=== PATIENT | male | born 1980 | race Two or more races ===

== ENCOUNTER 2018-09-28 10:43 | Outpatient (CLI) | payer OTHER | END 2018-09-28 10:45 | disposition home or self-care (01) | LOC: RAD 10:43 | DX: M54.5 Low back pain (principal) ==

== ENCOUNTER 2021-10-21 15:04 | Outpatient (CLI) | payer OTHER ==
[~2021-10-21 15:04] MED LIST: DICLOFENAC POTA50 MG PO; NORFLEX100MG PO; VOLTAREN-XR100 MG PO
== END 2021-10-21 15:12 | disposition home or self-care (01) ==
LOC: LAB 15:04
DX: Z20.818 Contact with and (suspected) exposure to other bacterial communicable diseases (principal); Z20.828 Contact with and (suspected) exposure to other viral communicable diseases

== ENCOUNTER 2022-01-28 12:52 | Emergency (ER) | payer OTHER ==
[~2022-01-28] VITALS: Ht 167.6 cm; Wt 74.8 kg
[2022-01-28] MEDS ORDERED: CIPRO500 MG PO (14:09)
== END 2022-01-28 14:51 | disposition home or self-care (01) ==
LOC: ER 12:52
DX: S01.121A Laceration with foreign body of right eyelid and periocular area, initial encounter (principal); W21.89XA Striking against or struck by other sports equipment, initial encounter; Y93.18 Activity, surfing, windsurfing and boogie boarding; Y92.832 Beach as the place of occurrence of the external cause; Z88.0 Allergy status to penicillin

== ENCOUNTER 2023-09-16 23:13 | Emergency (ER) | payer OTHER ==
[~2023-09-16] VITALS: Ht 167.6 cm; Wt 74.8 kg
[~2023-09-16 23:13] MED LIST changes: +CIPRO500 MG PO
[2023-09-16] MEDS ORDERED: LIPITOR20 MG PO (23:23)
== END 2023-09-17 01:21 | disposition home or self-care (01) ==
LOC: ER 23:14
DX: K21.9 Gastro-esophageal reflux disease without esophagitis (principal); Z88.0 Allergy status to penicillin

== ENCOUNTER 2024-01-12 16:13 | Outpatient (CLI) | payer OTHER ==
[~2024-01-12 16:13] MED LIST changes: +LIPITOR20 MG PO
== END 2024-01-12 16:19 | disposition home or self-care (01) ==
LOC: RAD 16:13
DX: J45.31 Mild persistent asthma with (acute) exacerbation (principal)